=== PATIENT | male | born 1985 | race Caucasian/White ===

== ENCOUNTER → 2016-09-02 | Outpatient (CLI) | payer BC ==
--- NOTE | 2016-09-02 20:04 | DI ---
XR FOOT COMPLETE MIN 3VW,09/02/2016 5:53 PM: Clinical History: Right foot pain Previous Exam: None at this facility. Findings: 3 views of the right foot are obtained, and demonstrate anatomic alignment without fractures. Impression: Normal right foot.
== END ==
LOC: MOB RAD 17:55
PROVIDERS: ATTEND Physician Assistant
DX: M79.671 Pain in right foot (principal)
CPT/HCPCS: 73630